=== PATIENT | male | born 1975 | race Caucasian/White ===

== ENCOUNTER → 2021-06-06 08:33 | Outpatient (CLI) | payer MEDICAID, SELFPAY ==
[2021-06-06 08:48] LABS: Basophils # 0.1 K/mm3 (0-0.2); Basophils % 1.8 % (0.1-2.0); Eosinophils # 0.1 K/mm3 (0.0-0.4); Eosinophils % 2.5 % (0.1-12.0); Hematocrit 48.4 % (42.0-52.0); Hemoglobin 16.2 g/dL (14.1-18.0); Lymphocytes # 1.7 K/mm3 (0.7-4.5); Lymphocytes % 32.6 % (10-50); Mean Corpuscular HGB Conc 33.5 g/dL (31.8-35.4); Mean Corpuscular Hemoglobin 29.9 pg (27.0-31.2); Mean Corpuscular Volume 89.4 fl (80-94); Monocytes # 0.4 K/mm3 (0.1-1.0); Monocytes % 7.4 % (1.7-9.3); Neutrophils # 2.9 K/mm3 (1.8-7.8); Neutrophils % 55.7 % (37.0-80.0); Platelet Count 174 K/mm3 (142-424); Red Blood Count 5.42 M/mm3 (4.60-6.20); White Blood Count 5.3 K/mm3 (4.8-10.8)
[2021-06-06 09:28] LABS: Chloride 102 mmol/L (98-107); Potassium 4.4 mmoL/L (3.5-5.1); Sodium 141 mmol/L (136-145)
[2021-06-06 09:30] LABS: Blood Urea Nitrogen 18 mg/dl (9-20)
[2021-06-06 09:31] LABS: Alanine Aminotransferase 31 U/L (12-78); Albumin Level 4.5 g/dl (3.5-5.0); Albumin/Globulin Ratio 1.5 (1.1-1.8); Alkaline Phosphatase 58 U/L (38-126); Anion Gap 14.4 mEq/L (5-15); Aspartate Amino Transferase 33 U/L (17-59); Bilirubin,Total 0.8 mg/dl (0.2-1.3); Calcium 9.6 mg/dl (8.4-10.2); Carbon Dioxide 29 mmol/L (22.0-30.0); Cholesterol 169 mg/dl (140-200); Estimated Glomerular Filt Rate 72 ml/min (>60); GFR (African American) 87 ML/MIN (>60); Glucose 85 mg/dl (74-100); Total Protein,Serum 7.5 g/dl (6.3-8.2); Triglycerides 198 mg/dl (30-150); VLDL Cholesterol 40 mg/dL (0-40)
[2021-06-06 09:32] LABS: HDL Cholesterol 42 mg/dl (40-60)
[2021-06-06 09:42] LABS: Direct LDL Cholesterol 89.75 mg/dL (100-129)
[2021-06-06 10:00] LABS: Hemoglobin A1C 5.1 % (4.0-6.0)
== END ==
PROVIDERS: Visit Provider Internal Medicine Adolescent Medicine
DX: Z00.00 Encounter for general adult medical examination without abnormal findings (principal); E66.9 Obesity, unspecified; Z68.35 Body mass index [BMI] 35.0-35.9, adult
CPT/HCPCS: 80053; 80061; 83036; 85025